=== PATIENT | female | born 2000 | race American Indian/Alaskan Native ===

== ENCOUNTER → 2019-10-03 | Emergency (ER) | payer OTHER ==
--- NOTE | 2019-10-04 02:35 | Emergency Department Report ---
ED General Adult HPI - General Chief complaint: GI Bleed Stated complaint: CP,RECTAL BLEED PUI?: No Source: patient Mode of arrival: Ambulatory Limitations: No Limitations - History of Present Illness Initial comments: Patient is a nulliparous 19-year-old -[place] female with no past medical history who presented to the ED with complaint of acute onset rectal bleeding and rectal pain 4 hours ago after having a bowel movement. Patient states that the initial bowel movement was hard and difficult to expel thereafter the subsequent stool was mixed with blood and finally bright red blood when she wiped herself. Patient denies abdominal pain, lightheadedness, dizziness, chest pain, shortness of breath, fever, chills, nausea, vomiting, diarrhea, dysuria, urinary frequency and urgency, dysmenorrhea, vaginal bleeding, cough or sore throat. MD Complaint: rectal bleeding -: Sudden, hour(s) (4) Location: buttocks Radiation: non-radiation Severity scale (0 -10): 0 Quality: dull Consistency: now resolved Improves with: none Worsens with: other (Bowel movement) Associated Symptoms: denies other symptoms. denies: confusion, chest pain, cough, diaphoresis, fever/chills, headaches, loss of appetite, malaise, nausea/vomiting, seizure, shortness of breath, syncope, weakness Treatments Prior to Arrival: none - Related Data Allergies Allergy/AdvReac Type Severity Reaction Status Date / Time shellfish derived Allergy Hives Verified 10/03/19 22:26 ED Review of Systems ROS: Stated complaint: CP,RECTAL BLEED Other details as noted in HPI Constitutional: denies: chills, fever Eyes: denies: eye pain, eye discharge, vision change ENT: denies: ear pain, throat pain Respiratory: denies: cough, shortness of breath, wheezing Cardiovascular: denies: chest pain, palpitations Endocrine: no symptoms reported Gastrointestinal: denies: abdominal pain, nausea, diarrhea Genitourinary: denies: urgency, dysuria, discharge Musculoskeletal: denies: back pain, joint swelling, arthralgia Skin: denies: rash, lesions Neurological: denies: headache, weakness, paresthesias Psychiatric: denies: anxiety, depression Hematological/Lymphatic: denies: easy bleeding, easy bruising ED Past Medical Hx - Past Medical History Previous Medical History?: No - Surgical History Past Surgical History?: No - Social History Smoking Status: Never Smoker Substance Use Type: None ED Physical Exam - General Limitations: No Limitations General appearance: alert, in no apparent distress - Head Head exam: Present: atraumatic, normocephalic, normal inspection - Eye Eye exam: Present: normal appearance, PERRL, EOMI Pupils: Present: normal accommodation - ENT ENT exam: Present: normal exam, normal orophraynx, mucous membranes moist, TM's normal bilaterally, normal external ear exam - Neck Neck exam: Present: normal inspection, full ROM. Absent: tenderness - Respiratory Respiratory exam: Present: normal lung sounds bilaterally. Absent: respiratory distress, wheezes, chest wall tenderness, decreased breath sounds - Cardiovascular Cardiovascular Exam: Present: regular rate, normal rhythm, normal heart sounds. Absent: systolic murmur, diastolic murmur, rubs, gallop - GI/Abdominal GI/Abdominal exam: Present: soft, normal bowel sounds. Absent: tenderness, guarding, rebound, hyperactive bowel sounds, organomegaly - Rectal Rectal exam: Present: fecal impaction, hemorrhoids, other (Female RN biometric screener present during the rectal exam). Absent: tenderness - Extremities Exam Extremities exam: Present: normal inspection, full ROM, normal capillary refill - Back Exam Back exam: Present: normal inspection, full ROM. Absent: tenderness, CVA tenderness (L), muscle spasm, paraspinal tenderness, vertebral tenderness - Neurological Exam Neurological exam: Present: alert, oriented X3, CN II-XII intact, normal gait, reflexes normal - Psychiatric Psychiatric exam: Present: normal affect, normal mood - Skin Skin exam: Present: warm, dry, intact, normal color. Absent: rash ED Course Vital Signs 10/04/19 02:53 Temperature 98.2 F Pulse Rate 83 Respiratory 18 Rate Blood Pressure 115/66 [Left] ED Medical Decision Making - Medical Decision Making This is a nulliparous 19-year-old -[place] female with no past medical history who presented to the ED with complaint of acute onset rectal bleeding and rectal pain 4 hours ago after having a bowel movement. Patient states that the initial bowel movement was hard and difficult to expel thereafter the subsequent stool was mixed with blood and finally bright red blood when she wiped herself. In the ED, patient is alert and oriented x3 and is not in distress. Rectal exam was positive for small internal hemorrhoids below the dentate line. Guaiac test was negative. Patient was discharged home and advised to increase water intake as well as increase high-fiber diet to prevent constipation. Patient verbalized understanding and was discharged home and advised to follow-up with her primary care physician in 3 to 5 days for reevaluation or return to the ED immediately if symptoms get worse. - Differential Diagnosis Hemorrhoids; Rectal abscess; Constipation Critical care attestation.: If time is entered above; I have spent that time in minutes in the direct care of this critically ill patient, excluding procedure time. ED Disposition Clinical Impression: Internal hemorrhoids without complication, Rectal bleed Constipation Qualifiers: Constipation type: other constipation type Qualified Code(s): K59.09 - Other constipation Disposition: - TO HOME OR SELFCARE Is pt being admited?: No Does the pt Need Aspirin: No Condition: Stable Instructions: Constipation (ED), Hemorrhoids (ED), Rectal Bleeding (ED) Additional Instructions: Drink plenty of fluids, increase fiber intake in your diet by eating fresh leafy vegetables and fruits, follow-up with your primary care physician in 5 to 7 days for reevaluation. Return to the ED immediately if symptoms get worse. Referrals: DANGELO LANDON MD [Staff Physician] - 3-5 Days Forms: Accompanied Note Time of Disposition: 02:34 Print Language: ROMANSH
== END | disposition home or self-care (01) ==
LOC: ED 22:11
DX: K64.8 Other hemorrhoids (principal); K59.00 Constipation, unspecified; Z91.013 Allergy to seafood
CPT/HCPCS: 99282